=== PATIENT | female | born 1995 | race Hispanic/Latino ===

== ENCOUNTER 2018-03-25 23:43 | Emergency (ER) | payer BC ==
[2018-03-26 01:14] LABS: Urine Blood NEGATIVE (NEG); Urine Glucose NEGATIVE (NEG); Urine Protein NEGATIVE (NEG); Urine Specific Gravity 1.015 (1.005-1.030); Urine pH 6.5 (5.0-7.0)
[2018-03-26 01:18] LABS: Absolute Lymphocytes (CBC) 2.7 K/uL (0.7-4.9); Absolute Monocytes 0.9 K/uL (0.1-1.3); Absolute Neutrophil 6.2 K/uL (1.8-8.0); Basophils % 1.1 % (0-1.3); Eosinophils % 1.3 % (0-4.4); Hematocrit 40.1 % (36.0-45.0); Lymphocytes % 26.8 % (15.3-44.8); MCH 29.8 pg (27.0-35.0); MCV 88.2 fL (80-100); Monocytes % 8.9 % (3.3-12.3); RBC Red Blood Cell Count 4.55 M/uL (3.86-4.86)
[2018-03-26 01:28] LABS: Urine Bacteria <20 /HPF (<20); Urine Culture Reflex Order NOT NEEDED; Urine RBC <5 /HPF (NONE SEEN)
[2018-03-26 01:29] LABS: Bicarbonate 26 mEq/L (21-31); Glucose Level 91 mg/dL (65-120); Potassium 3.4 mEq/L (3.6-5.0); Sodium Level 135 mEq/L (135-145)
[2018-03-26 01:35] LABS: ALT/SGPT 16 IU/L (10-60); AST/SGOT 14 IU/L (10-42); Alkaline Phosphatase 46 IU/L (42-121); Amylase Level 35 U/L (28-100); BUN Blood Urea Nitrogen 22 mg/dL (6-20); Bilirubin Direct < 0.1 mg/dL (0-0.2); Bilirubin Total 0.3 mg/dL (0.3-1.2); Lipase 24 U/L (22-51); Protein, Total 8.1 g/dL (6.0-8.3)
[2018-03-26] MEDS ORDERED: KETOROLAC 30 MG/ML INJ ONE (02:07)
--- NOTE | 2018-03-26 03:04 | ER ---
Nurse's Notes [facility] Name: Casi Suh Age: 22 yrs Sex: Female : 1995 Arrival Date: 03/25/2018 Time: 23:44 Bed 7 Private MD: Diagnosis: Lumbar strain Presentation: 03/25 23:54 Presenting complaint: Patient states: that approx 30 minutes she was sitting up to turn off tv and got a sharp pain in the middle of her back. She also became short of breath at that same time. Pain has since decreased but she continues to have trouble catching her breath. Transition of care: patient was not received from another setting of care. Onset of symptoms was March 25, 2018 at 23:15. Risk Assessment: Do you want to hurt yourself or someone else? Patient reports no desire to harm self or others. 23:54 Method Of Arrival: Ambulatory 23:54 Acuity: CONRAD 4 23:56 Care prior to arrival: Medication(s) given: Motrin, 400 mg, at 2330. 03/26 01:35 Initial Sepsis Screen: Does the patient meet any 2 criteria? No. Patient's initial lp1 sepsis screen is negative. Does the patient have a suspected source of infection? No. Patient's initial sepsis screen is negative. Triage Assessment: 03/25 23:57 General: Appears uncomfortable, Behavior is calm, cooperative, appropriate for age. fc Pain: Complains of pain in center of back Pain currently is 5 out of 10 on a pain scale. Quality of pain is described as aching, shooting, stabbing, Pain began 30 min ago. Is continuous. EENT: No deficits noted. Neuro: Level of Consciousness is awake, alert, obeys commands, Oriented to person, place, time, situation. Cardiovascular: No deficits noted. Respiratory: Reports shortness of breath pain with movement pain with respiration Airway is patent Trachea midline Respiratory effort is even, unlabored, Respiratory pattern is regular, symmetrical, Onset: The symptoms/episode began/occurred just prior to arrival. GI: No deficits noted. : No deficits noted. Derm: No deficits noted. Musculoskeletal: Circulation, motion, and sensation intact. Capillary refill < 3 seconds, Range of motion: intact in all extremities, Reports pain in center of back. 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 - Social history:: Smoking status: Patient/guardian denies using tobacco. - Ebola Screening: : Patient negative for fever greater than or equal to 101.5 degrees Fahrenheit, and additional compatible Ebola Virus Disease symptoms Patient denies exposure to infectious person Patient denies travel to an Ebola-affected area in the 21 days before illness onset. Screenin/09 01:34 Abuse screen: Denies threats or abuse. Denies injuries from another. Nutritional lp1 screening: No deficits noted. Tuberculosis screening: No symptoms or risk factors identified. Fall Risk None identified. Assessment: 01:00 General: Appears in no apparent distress. Behavior is calm, cooperative, appropriate lp1 for age. Pain: Complains of pain in left low back Pain currently is 5 out of 10 on a pain scale. Quality of pain is described as aching. Neuro: Level of Consciousness is awake, alert, obeys commands. Cardiovascular: Patient's skin is warm and dry. Respiratory: Respiratory effort is even, unlabored. GI: No signs and/or symptoms were reported involving the gastrointestinal system. : Denies burning with urination. EENT: No signs and/or symptoms were reported regarding the EENT system. Derm: Skin is pink, warm \T\ dry. Musculoskeletal: Circulation, motion, and sensation intact. 02:17 Reassessment: Pt taken to CT. ea Vital Signs: 03/25 23:57 BP 119 / 74; Pulse 89; Resp 18; Temp 99.1(O); Pulse Ox 100% on R/A; Weight 82.55 kg fc (R); Height 5 ft. 4 in. (162.56 cm) (R); Pain 02/24; 03/26 02:34 BP 105 / 78; Pulse 75; Resp 16; Pulse Ox 100% on R/A; lp1 03/25 23:57 Body Mass Index 31.24 (82.55 kg, 162.56 cm) ED Course: 03/25 23:44 Patient arrived in ED. ds1 23:55 Triage completed. 23:56 Arm band placed on Patient placed in waiting room, Patient notified of wait time. 03/26 00:47 Giuseppe Ashby PA is PHCP. [facility] 00:47 Chidi Reyna MD is Attending Physician. [facility] 00:51 Carol Pedro, RN is Primary Nurse. lp1 01:00 Patient has correct armband on for positive identification. Placed in gown. lp1 01:00 Inserted saline lock: 20 gauge in right antecubital area, using aseptic technique. lp1 Blood collected. 02:[address] via wheelchair. lp1 02:26 CT completed. Patient tolerated procedure well. Patient moved back from [place]. 02:31 CT Stone Protocol In Process Unspecified. EDMS 03:17 No provider procedures requiring assistance completed. IV discontinued, No lp1 redness/swelling at site. Pressure dressing applied. Administered Medications: 02:08 Drug: Ketorolac 30 mg Route: IVP; Site: right antecubital; ea 03:18 Follow up: Response: No adverse reaction lp1 Outcome: 03:03 Discharge ordered by . [facility] 03:17 Discharged to home ambulatory, with family. lp1 03:17 Condition: good 03:17 Discharge instructions given to patient, Instructed on discharge instructions, follow up and referral plans. medication usage, Demonstrated understanding of instructions, follow-up care, medications, Prescriptions given X 1. 03:18 Patient left the ED. lp1 Signatures: Dispatcher [employer] EDVT Giuseppe Ashby PA PA [facility] Oseas Keller Aracelis Sanchez RN RN Marnie Gatica [facility] Carol Pedro, AINSLEY SCHMITZ [facility] Brigid Parry RN RN ea
--- NOTE | 2018-03-26 03:04 | EDPHYS ---
Physician Documentation [facility] Name: Casi Suh Age: 22 yrs Sex: Female : 1995 Arrival Date: 03/25/2018 Time: 23:44 Bed 7 Private MD: ED Physician Chidi Reyna HPI: 03/26 00:54 This 22 yrs old Female presents to ER via Ambulatory with complaints of Back jmm Pain. 00:54 The patient presents with pain that is acute, with no known mechanism of injury. The jmm symptoms are located in the lumbar area and left mid back. Onset: The symptoms/episode began/occurred acutely, just prior to arrival. The pain does not radiate. Associated signs and symptoms: Pertinent positives: SOB. The problem was sustained from unknown cause. This is a 22 year old female with no chronic medical conditions that presents to the ED with mid back pain which awoke her from sleep. Patient states having shortness of breath with the episode of pain. Denies hematuria or abdominal pain. . 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 - Social history:: Smoking status: Patient/guardian denies using tobacco. - Ebola Screening: : Patient negative for fever greater than or equal to 101.5 degrees Fahrenheit, and additional compatible Ebola Virus Disease symptoms Patient denies exposure to infectious person Patient denies travel to an Ebola-affected area in the 21 days before illness onset. ROS: 03/26 00:54 Constitutional: Negative for fever, chills, and weight loss, Cardiovascular: Negative jmm for chest pain, palpitations, and edema, Respiratory: Negative for shortness of breath, cough, wheezing, and pleuritic chest pain, Abdomen/GI: Negative for abdominal pain, nausea, vomiting, diarrhea, and constipation. : Negative for injury, bleeding, discharge, and swelling, Skin: Negative for injury, rash, and discoloration. Back: Positive for pain at rest, pain with movement. All other systems are negative. Exam: 00:54 Head/Face: atraumatic. Cardiovascular: Regular rate and rhythm. No gallops, murmurs, jmm or rubs. Full/Equal distal pulses. Respiratory: Lungs have equal breath sounds bilaterally, clear to auscultation. No rales, rhonchi or wheezes noted. No increased work of breathing, no retractions or nasal flaring. Abdomen/GI: Soft, non-tender, with normal bowel sounds. No distension or tympany. No guarding or rebound. No evidence of tenderness throughout. 00:54 Constitutional: The patient appears in no acute distress, alert, awake. 00:54 Back: mid back pain on palpation, mild left paraspinal pain on palpation. 00:54 Musculoskeletal/extremity: ROM: intact in all extremities. 00:54 Skin: Appearance: Color: normal in color. 00:54 Neuro: Orientation: is normal, Mentation: is normal, Memory: is normal, Gait: is steady. Vital Signs: 03/25 23:57 BP 119 / 74; Pulse 89; Resp 18; Temp 99.1(O); Pulse Ox 100% on R/A; Weight 82.55 kg fc (R); Height 5 ft. 4 in. (162.56 cm) (R); Pain 5/10; 03/26 02:34 BP 105 / 78; Pulse 75; Resp 16; Pulse Ox 100% on R/A; lp1 03/25 23:57 Body Mass Index 31.24 (82.55 kg, 162.56 cm) fc MDM: 00:54 Patient medically screened. [facility] 02:30 Data reviewed: vital signs, nurses notes, lab test result(s), radiologic studies, CT [facility] scan. 02:30 ED course: Ct imaging discussed with the patient. Symptoms appear most likely due to [facility] musculoskeletal pain. Patient given return precautions. Patient agrees with the plan of care. . 03/26 00:58 Order name: Amylase, Serum; Complete Time: :43 [facility] 03/26 00:58 Order name: Basic Metabolic Panel; Complete Time: :43 [facility] 03/26 00:58 Order name: CBC with Diff; Complete Time: :43 [facility] 03/26 00:58 Order name: Creatinine for Radiology; Complete Time: :43 [facility] 03/26 00:58 Order name: Hepatic Function; Complete Time: :43 [facility] 03/26 00:54 Order name: Urine Test (obtain specimen); Complete Time: 00:57 [facility] 03/26 00:58 Order name: Lipase; Complete Time: :43 [facility] 03/26 00:58 Order name: Urine Microscopic Only; Complete Time: :43 [facility] 03/26 00:58 Order name: IV Saline Lock; Complete Time: 01:34 [facility] 03/26 00:58 Order name: CT Stone Protocol [facility] 03/26 01:00 Order name: Urine Dipstick--Ancillary (enter results); Complete Time: : [facility] 03/26 01:00 Order name: Urine --Ancillary (enter results); Complete Time: : [facility] 03/26 00:58 Order name: Labs collected and sent; Complete Time: :34 [facility] 03/26 00:58 Order name: Urine Dipstick-Ancillary (obtain specimen); Complete Time: :34 [facility] Administered Medications: 02:08 Drug: Ketorolac 30 mg Route: IVP; Site: right antecubital; ea 03:18 Follow up: Response: No adverse reaction lp1 Disposition: 04:40 Co-signature as Attending Physician, Chidi Reyna MD. rn Disposition: 03/26/18 03:03 Discharged to Home. Impression: Lumbar strain. - Condition is Stable. - Discharge Instructions: Back Pain, Adult. - Prescriptions for orphenadrine citrate 100 mg Oral Tablet Sustained Release - take 1 tablet by ORAL route 2 times per day As needed; 20 tablet. - Medication Reconciliation Form, Thank You Letter, Antibiotic Education, Prescription Opioid Use form. - Follow up: Private Physician; When: 1 - 2 days; Reason: Continuance of care. - Notes: Please follow up with your primary care provider in 1 to 2 days for reevaluation. Please return to the ED if you develop worsening pain, fever, shortness of breath, chest pain or any other concerning symptoms. Signatures: Dispatcher [employer] [facility] Giuseppe Ashby PA PA jmm Chretien, Felicia, RN Chidi Peng MD MD rn Pena, Laura, RN RN lp1 Brigid Parry RN RN ea Corrections: (The following items were deleted from the chart) 01:11 00:54 URINALYSIS+U.LAB.BRZ ordered. EDNJ EDMS 03:18 03:03 03/26/2018 03:03 Discharged to Home. Impression: Lumbar strain. Condition is lp1 Stable. Forms are Medication Reconciliation Form, Thank You Letter, Antibiotic Education, Prescription Opioid Use. Follow up: Private Physician; When: 1 - 2 days; Reason: Continuance of care. gerson
[2018-03-26 04:21] VITALS: BP 105/78; TEMP 99.1; O2SAT 100
--- NOTE | 2018-03-26 10:08 | RAD REPORT ---
EXAM DESCRIPTION: CT - Stone Protocol - 03/26/2018 4:26 am CLINICAL HISTORY: Flank pain. COMPARISON: None. TECHNIQUE: Axial images were obtained without oral or IV contrast. Lack of contrast limits solid org an and vascular assessment. The [id number] spans the entirety of the system partially obscuring uppermost abdomen and lung bases. Coronal reformatted images were obtained and reviewed. All CT scans are performed using dose optimization technique as appropriate and may include automated exposure control or mA/KV adjustment according to patient size. FINDINGS: The lower lung reyes are clear. Fatty liver noted. The spleen is normal in size. The pancreas and adrenal glands are normal. No patho logic lymphadenopathy in the abdomen or pelvis. No urinary tract stones or obstructive uropathy. No bowel obstruction, free air, free fluid or abscess. Normal appendix noted. No significant bony abnormality. IMPRESSION: No urinary tract stones or obstructive uropathy. Fatty liver.
== END 2018-03-26 03:18 | disposition home or self-care (01) ==
LOC: ER 23:43
DX: S39.012A Strain of muscle, fascia and tendon of lower back, initial encounter (principal)
CPT/HCPCS: 36415; 74176; 76377; 80048; 80076; 81003; 81015; 81025; 82150; 83690; 85025; 96374; 99284

== ENCOUNTER 2019-06-10 19:58 | Emergency (ER) | payer BC ==
[2019-06-10 21:48] LABS: Urine Blood 3+ (NEG); Urine Glucose NEGATIVE (NEG); Urine Protein NEGATIVE (NEG)
[2019-06-10 21:49] LABS: Basophils % 0.4 % (0-1.3); Hematocrit 41.7 % (36.0-45.0); Lymphocytes % 25.1 % (15.3-44.8); MPV 9.2 fL (7.6-11.3); RBC Red Blood Cell Count 4.64 M/uL (3.86-4.86)
[2019-06-10] MEDS ORDERED: KETOROLAC 30 MG/ML INJ ONE (21:51)
[2019-06-10] MEDS ORDERED: NA CHLORIDE 0.9% 1,000 ML ONE (21:51)
[2019-06-10 22:07] LABS: ALT/SGPT 20 U/L (12-78); AST/SGOT 4 U/L (15-37); Albumin 3.5 g/dL (3.4-5.0); Alkaline Phosphatase 61 U/L (45-117); BUN Blood Urea Nitrogen 19 mg/dL (7-18); Bicarbonate 25 mmol/L (21-32); Bilirubin Total 0.3 mg/dL (0.2-1.0); Glucose Level 98 mg/dL (74-106); Potassium 3.6 mmol/L (3.5-5.1); Protein, Total 8.3 g/dL (6.4-8.2); Sodium Level 141 mmol/L (136-145)
--- NOTE | 2019-06-10 23:07 | ER ---
Nurse's Notes [facility] Name: Casi Suh Age: 23 yrs Sex: Female : 1995 Arrival Date: 06/10/2019 Time: 20:02 Bed 18 Private MD: Diagnosis: Sprain of ligaments of thoracic spine Presentation: 06/10 20:24 Presenting complaint: Patient states: "It started about 3 weeks ago, but I have been jd3 having body aches and chills, and bone pains. 2 weeks ago I took 'Plan B' and I keep having this bone pain with off and on chills. I'm not sure if these are side effects or not, but it just keeps getting worse. I had my cycle on the of this month, but I started bleeding again.". Transition of care: patient was not received from another setting of care. Onset of symptoms was June 10, 2019. Risk Assessment: Do you want to hurt yourself or someone else? Patient reports no desire to harm self or others. Initial Sepsis Screen: Does the patient meet any 2 criteria? No. Patient's initial sepsis screen is negative. Does the patient have a suspected source of infection? No. Patient's initial sepsis screen is negative. Care prior to arrival: None. 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 - Social history:: Smoking status: Patient/guardian denies using tobacco. - Ebola Screening: : Patient negative for fever greater than or equal to 101.5 degrees Fahrenheit, and additional compatible Ebola Virus Disease symptoms. Screenin:59 Abuse screen: Denies threats or abuse. Denies injuries from another. Nutritional rr5 screening: No deficits noted. Tuberculosis screening: No symptoms or risk factors identified. Fall Risk IV access (20 points). Total Sutherland Fall Scale indicates No Risk (0-24 pts). Assessment: 21:00 General: Appears in no apparent distress. comfortable, Behavior is calm, cooperative, rr5 appropriate for age, Reports chills for. 21:00 Pain: Complains of pain in body Pain does not radiate. Pain currently is 7 out of 10 on rr5 a pain scale. Quality of pain is described as aching, Pain began gradually, Is intermittent. Neuro: Level of Consciousness is awake, alert, obeys commands, Oriented to person, place, time, situation, Appropriate for age. Cardiovascular: Capillary refill < 3 seconds Patient's skin is warm and dry. Respiratory: Airway is patent Respiratory effort is even, unlabored, Respiratory pattern is regular, symmetrical. GI: Abdomen is round. : Reports vaginal bleeding that is. EENT: No signs and/or symptoms were reported regarding the EENT system. Derm: Skin is intact, Skin is pink, warm \\T\\ dry. Skin temperature is warm. Musculoskeletal: Circulation, motion, and sensation intact. Capillary refill < 3 seconds. 21:55 Reassessment: toradol given IV for the body pain, see MAR. rr5 22:20 Reassessment: Patient appears in no apparent distress at this time. Patient and/or rr5 family updated on plan of care and expected duration. Pain level reassessed. Patient is alert, oriented x 3, equal unlabored respirations, skin warm/dry/pink. 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 23:30 Reassessment: IV fluid consumed, patient is for discharge. rr5 23:35 Reassessment: Patient appears in no apparent distress at this time. Patient and/or rr5 family updated on plan of care and expected duration. Pain level reassessed. Patient is alert, oriented x 3, equal unlabored respirations, skin warm/dry/pink. discharge instruction given and explained without complaints made, verbalized understanding. Patient states feeling better. Patient states symptoms have improved. Vital Signs: 20:27 BP 140 / 94; Pulse 101; Resp 19 S; Temp 98.6(TE); Pulse Ox 100% on R/A; Weight 80.74 kg jd3 (R); Height 5 ft. 4 in. (162.56 cm) (R); Pain 7/10; 21:50 BP 121 / 72; Pulse 92; Resp 17; Pulse Ox 100% ; Pain 7/10; rr5 22:21 BP 113 / 74; Pulse 90; Resp 16; Pulse Ox 99% ; rr5 23:35 BP 115 / 70; Pulse 85; Resp 17; Pulse Ox 98% ; Pain 3/10; rr5 20:27 Body Mass Index 30.55 (80.74 kg, 162.56 cm) jd3 ED Course: 20:02 Patient arrived in ED. es 20:27 Triage completed. jd3 20:28 Arm band placed on. jd3 20:30 Patient has correct armband on for positive identification. Bed in low position. Call rr5 light in reach. 20:47 Kamaljit Flores MD is Attending Physician. tw4 21:00 Primo Robertson, AINSLEY is Primary Nurse. rr5 21:43 Inserted saline lock: 20 gauge in right antecubital area, using aseptic technique. hi Blood collected. 23:35 No provider procedures requiring assistance completed. IV discontinued, intact, rr5 bleeding controlled, No redness/swelling at site. Pressure dressing applied. Administered Medications: 21:55 Drug: TORadol 30 mg Route: IVP; Site: right antecubital; rr5 22:00 Follow up: Response: No adverse reaction rr5 21:55 Drug: NS 0.9% 1000 ml Route: IV; Rate: 1 bolus; Site: right antecubital; rr5 23:30 Follow up: Response: No adverse reaction; IV Status: Completed infusion; IV Intake: rr5 1000ml Intake: 23:30 IV: 1000ml; Total: 1000ml. rr5 Outcome: 23:04 Discharge ordered by . tw4 23:35 Discharged to home ambulatory, with family. rr5 23:35 Condition: stable 23:35 Discharge instructions given to patient, Instructed on discharge instructions, follow up and referral plans. medication usage, Demonstrated understanding of instructions, follow-up care, medications, Prescriptions given X 1. 23:44 Patient left the ED. rr5 Signatures: Xochitl Morin Moriah mt Davies, Jonathon, RN RN jd3 Wadley, Terrence, MD MD tw4 Primo Robertson, RN RN rr5 Corrections: (The following items were deleted from the chart) 20:29 20:24 Presenting complaint: Patient states: "It started about 3 weeks ago, but I have jd3 been having body aches and chills, and bone pains. 2 weeks ago I took 'Plan B' and I keep having this bone pain with off and on chills. I'm not sure if these are side effects or not, but it just keeps getting worse. I haven't had my period yet, but I started bleeding today." jd3 21:58 21:00 General: Appears in no apparent distress. comfortable, Behavior is calm, rr5 cooperative, appropriate for age, rr5
--- NOTE | 2019-06-10 23:07 | EDPHYS ---
Physician Documentation [facility] Name: Casi Suh Age: 23 yrs Sex: Female : 1995 Arrival Date: 06/10/2019 Time: 20:02 Bed 18 Private MD: ED Physician Kamaljit Flores HPI: 06/11 00:01 This 23 yrs old Female presents to ER via Ambulatory with complaints of Back tw4 Pain, Chills. 00:01 The patient presents with pain that is chronic, with no known mechanism of injury. The tw4 symptoms are located in the thoracic area. Onset: The symptoms/episode began/occurred 3 week(s) ago. The pain does not radiate. Associated signs and symptoms: The patient has no apparent associated signs or symptoms. Severity of symptoms: At their worst the symptoms were moderate, in the emergency department the symptoms are unchanged. The patient has not experienced similar symptoms in the past. 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 - Social history:: Smoking status: Patient/guardian denies using tobacco. - Ebola Screening: : Patient negative for fever greater than or equal to 101.5 degrees Fahrenheit, and additional compatible Ebola Virus Disease symptoms. ROS: 06/11 00:01 Constitutional: Negative for fever, chills, and weight loss, Eyes: Negative for injury, tw4 pain, redness, and discharge, Cardiovascular: Negative for chest pain, palpitations, and edema, Respiratory: Negative for shortness of breath, cough, wheezing, and pleuritic chest pain, Abdomen/GI: Negative for abdominal pain, nausea, vomiting, diarrhea, and constipation, Back: Negative for injury and pain, Skin: Negative for injury, rash, and discoloration, Neuro: Negative for headache, weakness, numbness, tingling, and seizure. Exam: 00:01 Constitutional: This is a well developed, well nourished patient who is awake, alert, tw4 and in no acute distress. Head/Face: Normocephalic, atraumatic. Cardiovascular: Regular rate and rhythm with a normal S1 and S2. No gallops, murmurs, or rubs. Normal PMI, no JVD. No pulse deficits. Respiratory: Lungs have equal breath sounds bilaterally, clear to auscultation and percussion. No rales, rhonchi or wheezes noted. No increased work of breathing, no retractions or nasal flaring. Abdomen/GI: Soft, non-tender, with normal bowel sounds. No distension or tympany. No guarding or rebound. No evidence of tenderness throughout. Back: No spinal tenderness. No costovertebral tenderness. Full range of motion. MS/ Extremity: Pulses equal, no cyanosis. Neurovascular intact. Full, normal range of motion. Neuro: Awake and alert, GCS 15, oriented to person, place, time, and situation. Cranial nerves II-XII grossly intact. Motor strength 5/5 in all extremities. Sensory grossly intact. Cerebellar exam normal. Normal gait. Vital Signs: 06/10 20:27 BP 140 / 94; Pulse 101; Resp 19 S; Temp 98.6(TE); Pulse Ox 100% on R/A; Weight 80.74 kg jd3 (R); Height 5 ft. 4 in. (162.56 cm) (R); Pain 7/10; 21:50 BP 121 / 72; Pulse 92; Resp 17; Pulse Ox 100% ; Pain 7/10; rr5 22:21 BP 113 / 74; Pulse 90; Resp 16; Pulse Ox 99% ; rr5 23:35 BP 115 / 70; Pulse 85; Resp 17; Pulse Ox 98% ; Pain 3/10; rr5 20:27 Body Mass Index 30.55 (80.74 kg, 162.56 cm) jd3 MDM: 20:47 Patient medically screened. tw4 06/11 00:01 Differential diagnosis: Cholelithiasis chronic back pain, Ureterolithiasis. Data tw4 reviewed: vital signs, nurses notes. Data interpreted: Pulse oximetry: Interpretation: normal. Counseling: I had a detailed discussion with the patient and/or guardian regarding: the historical points, exam findings, and any diagnostic results supporting the discharge/admit diagnosis. Medication response: Toradol relieved patient's pain. The symptoms have resolved. Response to treatment: the patient's symptoms have resolved after treatment, and as a result, I will discharge patient. 06/10 21:15 Order name: Urine Dipstick--Ancillary (enter results); Complete Time: 22:42 cm6 06/10 22:42 Interpretation: Normal except: UBLD 3+. tw4 06/10 21:15 Order name: Urine --Ancillary (enter results); Complete Time: 22:42 cm6 06/10 22:42 Interpretation: Within normal limits: URINE PREG NEG. 06/10 21:34 Order name: CBC with Diff; Complete Time: 22:42 tw4 06/10 22:43 Interpretation: Within normal limits. tw06/10 21:34 Order name: CMP; Complete Time: 22:42 [facility] 06/10 22:42 Interpretation: Normal except: CL 109; BUN 19. [facility] 06/10 21:02 Order name: Urine Dipstick-Ancillary (obtain specimen); Complete Time: 21:12 tw4 06/10 21:02 Order name: Urine Test (obtain specimen); Complete Time: 21:12 [facility] Administered Medications: 06/10 21:55 Drug: TORadol 30 mg Route: IVP; Site: right antecubital; rr5 22:00 Follow up: Response: No adverse reaction rr5 21:55 Drug: NS 0.9% 1000 ml Route: IV; Rate: 1 bolus; Site: right antecubital; rr5 23:30 Follow up: Response: No adverse reaction; IV Status: Completed infusion; IV Intake: rr5 1000ml Disposition: 06/10/19 23:04 Discharged to Home. Impression: Sprain of ligaments of thoracic spine. - Condition is Stable. - Discharge Instructions: Thoracic Strain, [id number]. - Prescriptions for Ibuprofen 800 mg Oral Tablet - take 1 tablet by ORAL route every 12 hours As needed take with food; 20 tablet. - Medication Reconciliation Form, Thank You Letter, Antibiotic Education, Prescription Opioid Use form. - Follow up: Private Physician; When: Upon discharge from the Emergency Department; Reason: If symptoms return, Recheck today's complaints, Continuance of care. - Problem is new. - Symptoms have improved. Signatures: Dispatcher [employer] Ethan Plummer RN RN jd3 Kamaljit Flores MD MD tw4 Robertson, Primo, RN RN rr5 Corrections: (The following items were deleted from the chart) 21:24 21:23 Urine Microscopic Only ordered. EDMS EDMS 23:44 23:04 06/10/2019 23:04 Discharged to Home. Impression: Sprain of ligaments of thoracic rr5 spine. Condition is Stable. Forms are Medication Reconciliation Form, Thank You Letter, Antibiotic Education, Prescription Opioid Use. Follow up: Private Physician; When: Upon discharge from the Emergency Department; Reason: If symptoms return, Recheck today's complaints, Continuance of care. Problem is new. Symptoms have improved. tw4
[2019-06-11 01:32] VITALS: TEMP 98.6
[2019-06-11 01:37] VITALS: BP 115/70; O2SAT 98
== END 2019-06-10 23:44 | disposition home or self-care (01) ==
LOC: ER 19:58
DX: S23.3XXA Sprain of ligaments of thoracic spine, initial encounter (principal)
CPT/HCPCS: 85025; 36415; 81025; 81003; 80053; J7030; 96361; 96374; 99284